=== PATIENT | female | born 1945 | race Caucasian/White ===

== ENCOUNTER 2016-12-31 21:09 | Emergency (ER) | payer BC, MEDICARE, OTHER ==
[~2016-12-31] VITALS: Ht 160 cm; Wt 79.5 kg
[~2016-12-31 21:09] MED LIST: CELEXA10 MG PO; CEPHALEXIN500 M1 PO; HYZAAR 25 MG-101 TAB PO; LIPITOR 40MG TA40 MG PO; NORCO 325 MG-51 TAB PO; RT ADVAIR 228 DISKUS IH; SINGULAIR 110 MG/TAB PO; SYNTHROID0.088 MG/T PO; VITAMIN D 1001000 IU PO; XOPENEX HF0.045 MG/A IH; ZYRTEC5 MG PO
[2016-12-31 21:14] VITALS: BP 166/84; TEMP 98.4
[2016-12-31] MEDS ORDERED: PREDNISONE20 MG PO (23:24)
[2016-12-31 23:50] VITALS: PULSE 88
== END 2016-12-31 23:51 | disposition home or self-care (01) ==
LOC: COL.ER 21:09
DX: J45.901 Unspecified asthma with (acute) exacerbation (principal); I10 Essential (primary) hypertension; F41.9 Anxiety disorder, unspecified; Z87.891 Personal history of nicotine dependence; E03.9 Hypothyroidism, unspecified
CPT/HCPCS: J7512

== ENCOUNTER 2017-01-09 21:10 | Emergency (ER) | payer BC, MEDICARE, OTHER ==
[~2017-01-09] VITALS: Ht 152.4 cm; Wt 79.5 kg
[~2017-01-09 21:10] MED LIST changes: +PREDNISONE20 MG PO
[2017-01-09 21:12] VITALS: TEMP 98.3
[2017-01-09 21:58] LABS: BASO # 0.1 (0.0-0.2); BASO % 0.4 % (0.0-2.0); EOS # 0.5 (0.0-0.7); EOS % 3.6 % (0-4.0); GRAN # 10.2 (1.4-6.5); GRAN % 69.6 % (42.2-75.2); HEMATOCRIT 36.6 % (37.0-47.0); HEMOGLOBIN 12.7 g/dl (12.5-16.0); LYMPH # 2.6 (1.2-3.4); LYMPH % 17.5 % (20.0-51.0); MEAN CELL VOLUME 86 fl (80.0-100.0); MEAN CORPUSCULAR HEMOGLOBIN 30 pg (27.0-31.0); MEAN CORPUSCULAR HGB CONC 35 g/dl (33.0-37.0); MEAN PLATELET VOLUME 10.9 fl (7.4-10.4); MONO # 1.2 (0.1-0.6); MONO % 8.1 % (1.7-9.3); PLATELET COUNT 277 K/mm3 (130-400); RED BLOOD COUNT 4.25 M/mm3 (4.10-5.30); REDCELL DISTRIBUTION WIDTH-CV 12.5 % (11.5-14.5); WHITE BLOOD COUNT 14.6 K/mm3 (4.8-10.8)
[2017-01-09 21:58] LABS: ARTERIAL BLD GAS O2 SATURATION 93.5 % (92-100); ARTERIAL BLD GAS TCO2 CT 23.4; ARTERIAL BLOOD GAS BASE EXCESS -0.6 (-2-2); ARTERIAL BLOOD GAS HCO3 22.4 meq/L (22-26); ARTERIAL BLOOD GAS PHT 7.46 C (7.35-7.45); ARTERIAL BLOOD GAS PO2 67.6 mmHg (80-100); ARTERIAL BLOOD GAS PO2T 67.6 (80-100); ARTERIAL BLOOD GAS pH 7.46 (7.35-7.45); OXYHEMOGLOBIN 92.8 %
[2017-01-09 21:59] LABS: ALLEN TEST YES; ALLENS TEST RESULT PASS; ATS? YES
[2017-01-09 22:07] LABS: ADJUSTED CALCIUM 9.5 mg/dL (8.4-10.2); ALBUMIN 3.7 gm/dL (3.5-5.0); BILIRUBIN,TOTAL 1.5 mg/dL (0.0-1.0); CALCIUM 9.3 mg/dL (8.4-10.2); CREATININE, serum 2.3 mg/dL (0.52-1.25); TOTAL PROTEIN 7.6 gm/dL (6.4-8.2)
[2017-01-10 00:36] LABS: PH 5 (5-8); SQUAMOUS EPITHELIAL 0-2 /hpf; URINE APPEARANCE Cloudy; URINE BACTERIA Rare /hpf; URINE BILIRUBIN Negative (NEGATIVE); URINE BLOOD Negative (NEGATIVE); URINE COLOR Amber; URINE GLUCOSE 2+ (NEGATIVE); URINE KETONE Negative (NEGATIVE); URINE RBC 0-2 /hpf; URINE UROBILINOGEN Negative (NEGATIVE)
[2017-01-10] MEDS ORDERED: K-DUR 10 MEQ T10 MEQ PO (01:32)
[2017-01-10 01:42] VITALS: BP 97/71; PULSE 81
== END 2017-01-10 01:42 | disposition home or self-care (01) ==
LOC: COL.ER 21:10
PROVIDERS: Nurse Practitioner
DX: R42 Dizziness and giddiness (principal); R05 Cough; R53.1 Weakness; R11.2 Nausea with vomiting, unspecified; R79.9 Abnormal finding of blood chemistry, unspecified; I10 Essential (primary) hypertension; J45.909 Unspecified asthma, uncomplicated; F41.9 Anxiety disorder, unspecified; Z87.891 Personal history of nicotine dependence

== ENCOUNTER 2018-08-07 16:33 | Emergency (ER) | payer BC, MEDICARE, OTHER ==
[~2018-08-07] VITALS: Ht 160 cm; Wt 72.3 kg
[~2018-08-07 16:33] MED LIST changes: +K-DUR 10 MEQ T10 MEQ PO
[2018-08-07 16:40] VITALS: TEMP 98.3
[2018-08-07 17:47] LABS: BASO # 0.1 (0.0-0.2); BASO % 1.3 % (0.0-2.0); EOS # 0.7 (0.0-0.7); EOS % 8.2 % (0-4.0); GRAN # 5.2 (1.4-6.5); GRAN % 59.8 % (42.2-75.2); HEMATOCRIT 36.5 % (37.0-47.0); HEMOGLOBIN 12.5 g/dl (12.5-16.0); LYMPH % 23.2 % (20.0-51.0); MEAN CELL VOLUME 88 fl (80.0-100.0); MEAN CORPUSCULAR HEMOGLOBIN 30 pg (27.0-31.0); MEAN CORPUSCULAR HGB CONC 34 g/dl (33.0-37.0); MEAN PLATELET VOLUME 10.6 fl (7.4-10.4); MONO # 0.6 (0.1-0.6); MONO % 7.2 % (1.7-9.3); PLATELET COUNT 231 K/mm3 (130-400); RED BLOOD COUNT 4.14 M/mm3 (4.10-5.30); REDCELL DISTRIBUTION WIDTH-CV 12.9 % (11.5-14.5)
[2018-08-07 17:59] LABS: ALANINE AMINOTRANSFERASE 33 U/L (9-52); ALBUMIN 3.7 gm/dL (3.5-5.0); ALKALINE PHOSPHATASE 109 U/L (50-136); ANION GAP 6 mmol/L (7-16); AST,SGOT 36 U/L (15-37); BILIRUBIN,TOTAL 1.4 mg/dL (0.0-1.0); BLOOD UREA NITROGEN 18 mg/dL (7-17); C-REACTIVE PROTEIN < 0.5 mg/dL (0.0-0.9); CALCIUM 9.4 mg/dL (8.4-10.2); CARBON DIOXIDE 28 mmol/L (22-30); CHLORIDE 106 mmol/L (98-107); CREATININE, serum 0.77 mg/dL (0.52-1.25); GLUCOSE 93 mg/dL (74-106); POTASSIUM 3.8 mmol/L (3.4-5.0); SODIUM 140 mmol/L (137-145)
[2018-08-07 19:38] LABS: COLLECTION METHOD CLEAN CATCH
[2018-08-07 19:46] LABS: MUCOUS Present /lpf; PH 5 (5-8); URINE APPEARANCE Hazy; URINE BACTERIA Rare /hpf; URINE BILIRUBIN Negative (NEGATIVE); URINE BLOOD Negative (NEGATIVE); URINE COLOR Yellow; URINE GLUCOSE Negative (NEGATIVE); URINE KETONE Negative (NEGATIVE); URINE LEUKOCYTE ESTERASE Trace (NEGATIVE); URINE NITRATE Negative (NEGATIVE); URINE PROTEIN(semi-quant) Negative (NEGATIVE)
[2018-08-07] MEDS ORDERED: CEFTIN 250250 MG/TAB PO (21:10)
[2018-08-07] MEDS ORDERED: NORCO 325 MG-51 TAB PO (21:10)
[2018-08-07 21:16] VITALS: BP 134/84; PULSE 70
== END 2018-08-07 21:17 | disposition home or self-care (01) ==
LOC: COL.ER 16:33
PROVIDERS: Emergency Medicine; Nurse Practitioner
DX: R10.9 Unspecified abdominal pain (principal); I10 Essential (primary) hypertension; E03.9 Hypothyroidism, unspecified; F41.9 Anxiety disorder, unspecified; J45.909 Unspecified asthma, uncomplicated; Z90.710 Acquired absence of both cervix and uterus; Z87.891 Personal history of nicotine dependence; Z98.890 Other specified postprocedural states; Z87.442 Personal history of urinary calculi; Z79.51 Long term (current) use of inhaled steroids
CPT/HCPCS: J1170; J2405; J7030; Q9967

== ENCOUNTER 2018-08-29 10:45 | Outpatient (RCR) | payer BC, MEDICARE, OTHER ==
[~2018-08-29 10:45] MED LIST changes: +CEFTIN 250250 MG/TAB PO
== END 2018-10-20 16:49 | disposition home or self-care (01) ==
LOC: WSPT 10:45
DX: M48.02 Spinal stenosis, cervical region (principal)
CPT/HCPCS: G8981-GP; G8982-GP

== ENCOUNTER → 2018-10-27 | Outpatient (CLI) | payer BC, MEDICARE, OTHER | LOC: COL.RAD 08:25 | DX: Z01.818 Encounter for other preprocedural examination (principal); M48.02 Spinal stenosis, cervical region; I77.810 Thoracic aortic ectasia; I65.23 Occlusion and stenosis of bilateral carotid arteries; K08.89 Other specified disorders of teeth and supporting structures; J32.0 Chronic maxillary sinusitis; J32.2 Chronic ethmoidal sinusitis; M47.812 Spondylosis without myelopathy or radiculopathy, cervical region | CPT/HCPCS: Q9967 ==

== ENCOUNTER 2019-02-21 14:44 | Emergency (ER) | payer BC, MEDICARE, OTHER ==
[~2019-02-21] VITALS: Ht 160 cm; Wt 73.6 kg
[2019-02-21 15:01] VITALS: TEMP 97.2
[2019-02-21 15:49] LABS: BASO # 0.1 (0.0-0.2); BASO % 0.6 % (0.0-2.0); EOS # 0.3 (0.0-0.7); GRAN # 6.6 (1.4-6.5); GRAN % 70.4 % (42.2-75.2); HEMATOCRIT 38.3 % (37.0-47.0); LYMPH # 1.5 (1.2-3.4); LYMPH % 16.3 % (20.0-51.0); MEAN CELL VOLUME 88 fl (80.0-100.0); MEAN CORPUSCULAR HEMOGLOBIN 30 pg (27.0-31.0); MEAN CORPUSCULAR HGB CONC 34 g/dl (33.0-37.0); MEAN PLATELET VOLUME 10.5 fl (7.4-10.4); MONO # 0.9 (0.1-0.6); MONO % 9.3 % (1.7-9.3); PLATELET COUNT 194 K/mm3 (130-400); RED BLOOD COUNT 4.34 M/mm3 (4.10-5.30); REDCELL DISTRIBUTION WIDTH-CV 12.1 % (11.5-14.5)
[2019-02-21] MEDS ORDERED: NORCO 325 MG-51 TAB PO (17:14)
[2019-02-21] MEDS ORDERED: INDOCIN50 MG PO (17:14)
[2019-02-21] MEDS ORDERED: COLCRYS0.6 MG PO (17:14)
[2019-02-21 17:35] VITALS: BP 146/96; PULSE 85
== END 2019-02-21 17:38 | disposition home or self-care (01) ==
LOC: COL.ER 14:44
PROVIDERS: Emergency Medicine
DX: M10.9 Gout, unspecified (principal); I10 Essential (primary) hypertension; Z79.51 Long term (current) use of inhaled steroids

== ENCOUNTER 2019-09-07 08:07 | Outpatient (RCR) | payer BC, MEDICARE, OTHER ==
[~2019-09-07 08:07] MED LIST changes: +COLCRYS0.6 MG PO; +INDOCIN50 MG PO
== END 2019-09-12 14:17 | disposition home or self-care (01) ==
LOC: WSC 08:07
DX: Z01.818 Encounter for other preprocedural examination (principal); M17.11 Unilateral primary osteoarthritis, right knee

== ENCOUNTER 2019-10-16 16:30 | Outpatient (RCR) | payer BC, MEDICARE, OTHER ==
[2019-10-16] MEDS ORDERED: CEPHALEXIN500 M1 PO (19:12)
== END 2019-12-17 | disposition still patient (30) ==
LOC: WSC
DX: M17.11 Unilateral primary osteoarthritis, right knee (principal); Z98.890 Other specified postprocedural states

== ENCOUNTER 2019-10-16 17:01 | Emergency (ER) | payer BC, MEDICARE, OTHER ==
[~2019-10-16] VITALS: Ht 160 cm; Wt 73.6 kg
[2019-10-16 17:11] VITALS: BP 114/64; TEMP 97.9
[2019-10-16 18:07] LABS: BASO # 0.1 (0.0-0.2); BASO % 0.9 % (0.0-2.0); EOS # 0.2 (0.0-0.7); EOS % 1.5 % (0-4.0); GRAN # 8.8 (1.4-6.5); GRAN % 75.7 % (42.2-75.2); HEMATOCRIT 39.7 % (37.0-47.0); HEMOGLOBIN 13.3 g/dl (12.5-16.0); LYMPH # 1.6 (1.2-3.4); LYMPH % 14.1 % (20.0-51.0); MEAN CELL VOLUME 93 fl (80.0-100.0); MEAN CORPUSCULAR HEMOGLOBIN 31 pg (27.0-31.0); MEAN CORPUSCULAR HGB CONC 34 g/dl (33.0-37.0); MEAN PLATELET VOLUME 10.8 fl (7.4-10.4); MONO # 0.9 (0.1-0.6); MONO % 7.5 % (1.7-9.3); PLATELET COUNT 313 K/mm3 (130-400); RED BLOOD COUNT 4.29 M/mm3 (4.10-5.30); REDCELL DISTRIBUTION WIDTH-CV 13.8 % (11.5-14.5)
[2019-10-16 18:23] LABS: C-REACTIVE PROTEIN 3.8 mg/dL (0.0-0.9); CREATININE, serum 1.22 (0.52-1.25); POTASSIUM 3.5 mmol/L (3.4-5.0)
[2019-10-16] MEDS ORDERED: CEPHALEXIN500 M1 PO (19:12)
[2019-10-16 19:42] VITALS: PULSE 107
== END 2019-10-16 19:42 | disposition home or self-care (01) ==
LOC: COL.ER 17:01
PROVIDERS: Emergency Medicine
DX: M79.671 Pain in right foot (principal); E78.5 Hyperlipidemia, unspecified; E03.9 Hypothyroidism, unspecified; I10 Essential (primary) hypertension; Z96.651 Presence of right artificial knee joint; Z79.51 Long term (current) use of inhaled steroids

== ENCOUNTER → 2020-02-01 | Outpatient (CLI) | payer BC, MEDICARE, OTHER | LOC: COL.RAD 12:07 | DX: M48.02 Spinal stenosis, cervical region (principal); M50.30 Other cervical disc degeneration, unspecified cervical region ==

== ENCOUNTER → 2021-03-20 | Outpatient (CLI) | payer BC, MEDICARE, OTHER | LOC: COL.RAD 07:46 | DX: M48.02 Spinal stenosis, cervical region (principal); M47.812 Spondylosis without myelopathy or radiculopathy, cervical region ==